=== PATIENT | female | born 1955 | race Caucasian/White ===

== ENCOUNTER 2018-06-07 10:30 | Inpatient (IN) | payer OTHER ==
[~2018-06-07] VITALS: Ht 152.4 cm; Wt 68.0 kg
[2018-06-07] MEDS ORDERED: CLONAZEPAM1 M1 PO (12:07)
[2018-06-07] MEDS ORDERED: ZYRTEC10 M2 PO (12:08)
[2018-06-07] MEDS ORDERED: RISPERDAL1 MG PO (12:08)
[2018-06-07] MEDS ORDERED: SINGULAIR10 MG PO (12:08)
[2018-06-07] MEDS ORDERED: PROZAC20 MG PO (12:08)
[2018-06-07] MEDS ORDERED: GABAPENTIN600 MG PO (12:08)
== END 2018-06-18 16:28 | disposition home or self-care (01) | DRG 658 ==
LOC: O/R 06-14 05:50 → SURH 06-14 05:50 → SURG 06-14 09:45 → SURH 06-14 16:26
PROVIDERS: Urology
PROC: 0TB00ZZ Excision of Right Kidney, Open Approach (ICD-10-PCS; principal; 2018-06-14 09:45)
PROC: 3E0F7GC Introduction of Other Therapeutic Substance into Respiratory Tract, Via Natural or Artificial Opening (ICD-10-PCS; 2018-06-15)
DX: C64.1 Malignant neoplasm of right kidney, except renal pelvis (principal); J44.9 Chronic obstructive pulmonary disease, unspecified

== ENCOUNTER 2019-12-27 06:25 | Day surgery (SDC) | payer OTHER ==
[~2019-12-27 06:25] MED LIST: CLONAZEPAM1 M1 PO; GABAPENTIN600 MG PO; PROZAC20 MG PO; RISPERDAL1 MG PO; SINGULAIR10 MG PO; ZYRTEC10 M2 PO
== END 2019-12-27 11:05 | disposition home or self-care (01) ==
LOC: AMB-ENDOS 06:25
DX: D12.5 Benign neoplasm of sigmoid colon (principal); K64.8 Other hemorrhoids